=== PATIENT | male | born 1935 | race Caucasian/White ===

== ENCOUNTER → 2016-07-10 | Outpatient (CLI) | payer OTHER, MEDICARE ==
[~2016-07-10] VITALS: Ht 182.9 cm; Wt 88.5 kg
[~2016-07-10] MED LIST: 5-HTP100 MG PO; ATIVAN1 M1 PO; AVODART0.5 MG PO; B12 PO; BACLOFEN20 MG PO; BAYER CHEWABLE81 MG PO; CALCIUM MAGNES1 EAC2 PO; CO Q-10100 MG PO; COPPER2 M1 PO; DHEA 10 MG TAB1 EACH PO; DOXYCYCLINE 10100 MG; GLUCOSAMINE CH1 EA10 PO; JUICE PLUS PO; LEVOTHYROXIN0.125 M1 PO; LEVOTHYROXINE0.05 MG PO; LIORESAL 10 MG10 MG PO; MAGNESIUM PO; MSM1000 MG PO; MULTIVITAMIN PO; NEXIUM40 MG PO; NIACIN400 MG PO; NORTRIPTYLINE H25 M3 PO; OMEGA 3 1,0001 EACH PO; PROBIOTIC1 EAC2 PO; SAM-E400 MG PO; TURMERIC500 MG PO; UROXATRAL10 MG PO; VITAMIN D35000 UNIT PO; ZINC PICOLINAT1 EACH PO; [UNRECOGNIZED DRUG - CODE] PO; [UNRECOGNIZED DRUG - OTHER] PO; [UNRECOGNIZED DRUG - OTHER] PO; [UNRECOGNIZED DRUG - OTHER] PO; [UNRECOGNIZED DRUG - OTHER] PO
--- NOTE | ~2016-07-10 | HPC ---
[facility] [address] [place] [address] PAIN MANAGEMENT CONSULTATION Name: SHEILAMARGOLeilani Foster III Room #: REG MADDY Ming.#: [id number] Admission: 07/10/16 Attend Phys: Catracho Fry DO Discharge: Date of : 33 Report #: [id number] THIS REPORT FOR: //name// CC: Catracho Gillette DATE OF SERVICE: 07/10/2016 REFERRING PHYSICIAN: Jacques Gillette M.D. CHIEF COMPLAINT: Neck pain. HISTORY OF PRESENT ILLNESS: As you know, the patient is a very pleasant 81-year-old male who suffers from cervical facet syndrome causing increasing neck pain and right head pain. He returns today in followup visit stating a pain score of around 3/10. States his pain is constant, steady, aching, dull, exacerbates throughout the day, improves with rest, relaxation, baclofen, and lying down. He does indicate that he suffers from some potential side effects of the baclofen, mainly sleepiness and disorientation. He returns today to discuss treatment options. He is denying a new injury, new trauma that may have led to progression of symptoms. Pain is rated around 3/10. ALLERGIES: No known drug allergies. CURRENT MEDICATIONS: Baclofen 20 mg 3 times a day p.r.n., lactobacillus 1 tab per day, vitamin supplementation 1 per day, niacin 400 mg per day, 5-HTP 100 mg per day, glucosamine chondroitin 1 tab per day, Coenzyme Q 200 mg per day, cholecalciferol 5000 units per day, omega-3 fish oil 1 tab per day, Copper 2 mg once a day, levothyroxine 125 mcg per day, omeprazole 40 mg per day, Avodart 0.5 mg once a day, Uroxatral 10 mg per day, aspirin 81 mg per day. SOCIAL HISTORY: The patient denies tobacco, alcohol, IV or illicit drug use. He is unaccompanied today. IMAGING: No new imaging available. PHYSICAL EXAMINATION: VITAL SIGNS: Blood pressure 112/68, pulse 73, respiratory rate 16, unlabored, the patient is 96% on room air, height 6 feet tall, weight 195 pounds, BMI calculated 26.5. GENERAL: Well-developed, well-nourished, well-hydrated 81-year-old male appearing stated age, placing current pain score 3/10. HEENT: Normocephalic, atraumatic. Pupils equal, round, reactive to light. Extraocular muscles are intact. Sclerae nonicteric, without injection. EXTREMITIES: Show no clubbing, no cyanosis, no edema. [address] [address] PAIN MANAGEMENT CONSULTATION Name: SHEILAELINA W [facility] Room #: REG [facility] Ming.#: [id number] Admission: 07/10/16 Attend Phys: Catracho Fry DO Discharge: Date of : 33 Report #: [id number] MUSCULOSKELETAL: Tenderness to palpation is noted over the paraspinal musculature, cervical spine, right-sided, deep palpation in area causes intensification of pain, lateral flexion, rotation and extension to the right exacerbates neck pain. Spurling's test negative. ASSESSMENT: 1. Cervicalgia. 2. Cervical spondylosis without radicular symptoms. 3. Myofascial pain. 4. Tension headache. 5. Chronic intractable pain. PLAN: 1. The patient returns today in followup visit where we have discussed the treatment options for cervicalgia secondary to cervical spondylosis without radicular symptoms. He is experiencing tension headaches that radiate from the cervical region over the occiput and towards the postauricular area. The patient and I discussed the options for treatment including physical therapy, stretching exercises and traction techniques. We also discussed medication management with neuropathic pain medications, possibly being added to current medication regimen. We also discussed intra-articular facet injections, medial branch nerve blocks and radiofrequency lesioning. After reviewing risks and benefits of all proposed treatment options, the patient chose conservative physical therapy. 2. The patient will begin physical therapy twice a week for 4 weeks. We have sent the patient to see [facility]. The patient will begin the physical therapy as quickly as possible. He will report back to our clinic without efficacy. 3. Recommend the patient continue current medical therapy. He was not provided any changes in medication management at this time. He is to continue his current dosing of medication with the caveat that he should reduce his baclofen from 20 mg 3 times a day to 10 mg. This should reduce the patient's somnolence and dysphoric effects with baclofen and will likely maintain analgesic benefit for muscle spasming. 4. We will see the patient back in followup visit on an as needed basis. We are hopeful the conservative treatment he has chosen will provide good benefit. If not, we will have the patient undergo medial branch nerve block radiofrequency lesioning to address cervicalgia secondary to cervical spondylosis without radiculopathy. <ELECTRONICALLY SIGNED> By: Catracho Fry DO 07/18/16 0937 [id number] Catracho Fry DO /nt
[2016-07-10 13:24] VITALS: BP 112/68
== END | disposition home or self-care (01) ==
LOC: PAIN 06:52
DX: M47.892 Other spondylosis, cervical region (principal); M79.1 Myalgia; G89.29 Other chronic pain; G44.209 Tension-type headache, unspecified, not intractable

== ENCOUNTER → 2016-07-31 | Outpatient (CLI) | payer OTHER, MEDICARE ==
[~2016-07-31] VITALS: Ht 182.9 cm; Wt 88.7 kg
[~2016-07-31] MED LIST changes: +DICLOFENAC SOD50 M1 PO; +ROBAXIN 750 MG750 M1 PO
--- NOTE | ~2016-07-31 | HPC ---
[facility] [address] [place] [address] PAIN MANAGEMENT CONSULTATION Name: SHEILAMARGOLeilani Foster III [facility] [id number] Admission: 07/31/16 Attend Phys: Catracho Fry DO Discharge: Date of : 33 Report #: [id number] THIS REPORT FOR: //name// CC: Catracho Gillette MD DATE OF SERVICE: 07/31/2016 REFERRING PHYSICIAN: Jacques Gillette M.D. CHIEF COMPLAINT: Neck and head pain. HISTORY OF PRESENT ILLNESS: As you know, the patient is an 81-year-old male who suffers from cervical facet syndrome causing increasing neck and right head pain. The patient returns in followup visit reporting pain score 4/10. We have tried conservative medical therapy with physical therapy, stretching exercises. We have even changed sleeping habits and pillows. We have even tried medications. Unfortunately, this has not provided much in the way of improvement in symptoms. He returns today in followup visit to discuss other options. He states pain is constant, steady, aching, dull, progresses throughout the day, improves with rest, baclofen and lying down. He returns to discuss options for treatment. ALLERGIES: No known drug allergies. CURRENT MEDICATIONS: Baclofen 10 mg 3 times a day, lactobacillus 1 tab per day, thiamine 1 tab per day, niacin 1 tab per day, 5-HTP 1 tab per day, glucosamine chondroitin 1 tab per day, zinc picolinate 1 tab per day, Coenzyme Q 100 mg per day, omega-3 fish oil 1 tab per day, levothyroxine 125 mcg per day, omeprazole 40 mg per day, Avodart 0.5 mg once a day, Uroxatral 10 mg once a day, aspirin 81 mg per day. SOCIAL HISTORY: The patient denies tobacco, alcohol, IV or illicit drug use. He is retired. He is accompanied by his who is present in room today. PHYSICAL EXAMINATION: VITAL SIGNS: Blood pressure 139/70, pulse 87, respiratory rate 16, unlabored. The patient is 94% on room air, height 6 feet tall, weight 195 pounds, BMI calculated 26.5. GENERAL: Well developed, well nourished, well hydrated 81-year-old male appearing stated age, placing current pain score 4/10. HEENT: Normocephalic, atraumatic. Pupils equal, round, reactive to light. Extraocular muscles are intact. EXTREMITIES: Showed no clubbing, no cyanosis, no edema. MUSCULOSKELETAL: There is once again noted tenderness to the paraspinal [address] [address] PAIN MANAGEMENT CONSULTATION Name: ELINA SOSA [facility] Room #: REG [facility]#: [id number] Admission: 07/31/16 Attend Phys: Catracho Fry DO Discharge: Date of : 33 Report #: [id number] musculature of the cervical spine, right greater than left. Deep palpation in the upper cervical region causes intensification of pain with the patient reporting pain radiating towards the occiput. Spurling's test negative. Cervical provocation testing is met with increasing pain on the right when compared to the left. Moderate restriction of motion. ASSESSMENT: 1. Cervicalgia. 2. Cervical spondylosis without radiculopathy. 3. Tension headache. 4. Myofascial pain. 5. Chronic intractable pain. PLAN: 1. The patient has returned today in followup visit reporting continued neck and head pain. He states that even with the changes we have made in medication management, changes in pillow structures and continued physical therapy, his symptoms are unabated. He returns today to discuss treatment options today. He denies new injury or trauma to his neck or right portion of his head. The patient and I did discuss that we could provide intraarticular facet injections at C2-C3 and provide also third occipital nerve blocks with these procedures. These will provide some temporary improvement in symptoms, but will likely lead to recurrence of symptoms as the medications dissipate. I do feel this is an option for treatment, but certainly would not provide prolonged improvement. We did discuss with the patient radiofrequency lesioning process of the cervical spine. This has multiple complications, specifically with sensory changes in the upper neck and lower portion of the head that can be more problematic than the original problem. Certainly if he wishes to move forward with this type of procedure, we could have him see my partner who continues to provide this type of treatment. I have subsequently discontinued due to its lack of efficacy. We also discussed with the patient the possibility of utilizing Botox injections, which have been shown to be extremely effective in alleviating the tension headache portion of this patient's symptoms and alleviating some of his neck pain. He opted for this type of treatment. 2. The patient will be referred to see . ____ in regards to Botox injections. We have provided a referral to . ____ office specifically for Botox injections to trial to determine if he can receive long-term benefit with this type of treatment. The patient will look into his options with ____. 3. We will make some changes in medication therapy today. We will be changing the patient off of baclofen rotating to Robaxin 750 mg dose 1 tab p.o. t.i.d. I have given the patient #90. He may take one half tab to one tab as needed for muscle spasming. This should have less sedation than his baclofen. He will initiate the Robaxin therapy and contact our clinic with any comments or concerns. 4. The patient will be started on diclofenac sodium 50 mg dose 1 tab p.o. [address] [address] PAIN MANAGEMENT CONSULTATION Name: ELINA SOSA BRODIE Room #: [facility] Rene#: [id number] Admission: 07/31/16 Attend Phys: Catracho Fry DO Discharge: Date of : 33 Report #: [id number] t.i.d. I have given the patient #90 tablets. He is to take these with meals. This will take the place of his Meloxicam therapy. We are just trying to determine if a new nonsteroidal anti-inflammatory will provide better efficacy. He is to watch for his dyspepsia, worsening blood pressure, lower extremity edema with use of this medication. 5. The patient will return to our clinic on an as needed basis. He will follow up with ____ from the referral standpoint to discuss Botox injections. By: 0737 [id number] Catracho Fry DO /nt
[2016-07-31 12:59] VITALS: BP 139/70
== END ==
LOC: PAIN 09:43
DX: M47.812 Spondylosis without myelopathy or radiculopathy, cervical region (principal); G89.29 Other chronic pain

== ENCOUNTER → 2017-02-12 | Outpatient (CLI) | payer OTHER, MEDICARE ==
[~2017-02-12] VITALS: Ht 180.3 cm; Wt 93.0 kg
[~2017-02-12] MED LIST changes: +XANAX 0.5 MG0.5 MG PO
--- NOTE | ~2017-02-12 | HPC ---
[facility] [address] [place] [address] PAIN MANAGEMENT CONSULTATION Name: SEHILAELINALeilani Foster III Room #: REG [facility] Rene#: [id number] Admission: 02/12/17 Attend Phys: Catracho Fry DO Discharge: Date of : 33 Report #: [id number] THIS REPORT FOR: //name// CC: Catracho Gillette MD DATE OF SERVICE: 02/12/2017 REFERRING PHYSICIAN: Jacques Gillette MD CHIEF COMPLAINT: Neck and head pain. HISTORY OF PRESENT ILLNESS: As you know, the patient is an 81-year-old male who returns today in followup visit with ongoing neck and head pain. He indicates pain begins in the cervical area, radiates over the top of the head in a greater occipital distribution. He was seen in our clinic and diagnosed with occipital neuralgia, possibly due to third occipital irritation and tension headache. The patient was trialed on conservative therapy, he did not see significant improvement and ultimately sought further evaluation, he had been seen by a neurology, also spent some time at the [facility] who confirmed the diagnosis. He has undergone injections to affect third occipital neuralgia, the facet joints of the upper cervical region and greater occipital nerve block, the only effective treatment to date has been the greater occipital nerve block, which lasted for about 7 days. This is fairly typical for occipital nerve blocks from a timing standpoint, this was done at the [facility] under ultrasound guidance and despite this treatment, his symptoms did return, he is now placing pain score at 5/10. He was advised by [facility] to return to our clinic as we had diagnosed this appropriately years ago and they recommend that the patient followup with us for interventional treatments and medication management. The patient is stating his pain is continuous, steady, aching, dull and headache in sensation. He returns to discuss potential options for treatment. ALLERGIES: No known drug allergies. CURRENT MEDICATIONS: Alprazolam, methocarbamol, lactobacillus, thiamine, vitamin B12, niacin, HTP-5, glucosamine chondroitin, coenzyme Q, cholecalciferol, DHEA, omega-3 fish oil, copper gluconate, multivitamin, aspirin, dutasteride, omeprazole, and levothyroxine. SOCIAL HISTORY: The patient denies tobacco, alcohol, IV or illicit drug use. He is retired, retired years ago, accompanied by his who is present in room today. IMAGING: [place] [address] PAIN MANAGEMENT CONSULTATION Name: ELINA SOSA III Room #: REG [facility] Rene#: [id number] Admission: 02/12/17 Attend Phys: Catracho Fry DO Discharge: Date of : 33 Report #: [id number] PHYSICAL EXAMINATION: VITAL SIGNS: Blood pressure 142/84, pulse 99, respiratory rate 18 and unlabored, the patient is 97% on room air, height 5 feet 11 inches tall, weight 205 pounds, and BMI calculated 28.6. GENERAL: Well-developed, well-nourished, well-hydrated 81-year-old male, appearing stated age, pain is rated around 5/10. HEENT: Normocephalic, atraumatic. Pupils are equal, round, and reactive to light. EXTREMITIES: Show no clubbing, no cyanosis, and no edema. MUSCULOSKELETAL: The patient does have some palpatory tenderness over the paraspinal musculature of the upper cervical region. Deep palpation of the area causes intensification of pain. There is some palpatory tenderness over the occipital ridge directly overlying the greater occipital nerve. ASSESSMENT: 1. Greater occipital neuralgia. 2. Tension headache. 3. Chronic intractable pain. PLAN: 1. The patient returns today in followup visit having followed up with multiple physicians since our last visit, most recent visits were with the [facility] where they confirmed the diagnosis of occipital neuralgia, whether this is due to third occipital neuralgia or greater occipital neuralgia remains to be determined, though given the effects of the greater occipital nerve block, I would assume this is more of a greater occipital issue than a third occipital issue. We have discussed with the patient that the options for treatment are fairly limited with occipital neuralgia, we are limited to medical management with neuropathic pain medications whether this be oral or topical can be somewhat effective, other options would be continued series of great occipital nerve blocks, which could provide long-term efficacy. We also discussed surgical options. After reviewing risks and benefits of all proposed treatment options, the patient chose to begin with the conservative medical management. 2. The patient will be started on Lyrica, we will be providing about 50 mg dose 1 tab p.o. at bedtime, we have chosen Lyrica as he has had gabapentin in the past and had side effects of somnolence, decreased mental acuity, disorientation, and confusion and was unable to escalate his dose to an appropriate level to resolve symptoms. We will start at 50 mg dose 1 tab p.o. at bedtime for 5 nights, then we will increase to 2 tabs p.o. at bedtime for 5 nights, then 1 tab p.o. q.a.m., 2 tabs p.o. at bedtime if necessary. The patient was given samples of the medication. He will initiate the therapy at this time. He will contact our clinic with any questions or concerns. He is only to increase the medications if he is not noticing efficacy at the [facility] [address] [place] [address] PAIN MANAGEMENT CONSULTATION Name: ELINA SOSA III Room #: THAO López#: [id number] Admission: 02/12/17 Attend Phys: Catracho Fry DO Discharge: Date of : 33 Report #: [id number] dosing. We hope that he will do well with this medication. We will see him back in followup visit in about 2 weeks. By: 1122 1346 Catracho Fry DO /nt
[2017-02-12 08:43] VITALS: BP 142/84
== END ==
LOC: PAIN 06:43
DX: G89.29 Other chronic pain (principal); M54.2 Cervicalgia; R51 Headache; M79.2 Neuralgia and neuritis, unspecified

== ENCOUNTER → 2017-03-05 | Outpatient (CLI) | payer OTHER, MEDICARE ==
[~2017-03-05] VITALS: Ht 180.3 cm; Wt 94.1 kg
[~2017-03-05] MED LIST changes: +LYRICA 50 MG50 MG PO; +NEURONTIN 300300 M1 PO
--- NOTE | ~2017-03-05 | HPC ---
[facility] [address] [place] [address] PAIN MANAGEMENT CONSULTATION Name: SHEILAELINALeilani Foster III Room #: REG [facility] [id number] Admission: 03/05/17 Attend Phys: Catracho Fry DO Discharge: Date of : 33 Report #: [id number] THIS REPORT FOR: //name// CC: Catracho Gillette MD DATE OF SERVICE: 03/05/2017 REFERRING PHYSICIAN: Jacques Gillette MD CHIEF COMPLAINT: Neck pain and head pain. HISTORY OF PRESENT ILLNESS: As you know, the patient is an 81-year-old male who has a longstanding history of neck pain and head pain problems. He has been diagnosed with third occipital neuralgia. We started the patient on medication management in the form of Lyrica in sample form, he is now taking 50 mg in the morning and 100 mg at night with greater than 50% improvement in overall pain. He returns today in followup visit for possible adjustments. He indicates no side effects to the medication at this time, feels that medications have been quite beneficial. He returns to discuss options for treatment as he is planning his winter trip to [place] where he spends the entire winter, returning in Spring. ALLERGIES: No known drug allergies. CURRENT MEDICATIONS: Alprazolam, methocarbamol, lactobacillus, thiamin, vitamin B12, niacin, HTP-5, glucosamine chondroitin, coenzyme Q, cholecalciferol, DHEA, omega-3 fish oil, Copper gluconate, multivitamin, aspirin, dutasteride, omeprazole, levothyroxine, and Lyrica. SOCIAL HISTORY: The patient denies tobacco, alcohol, IV or illicit drug use. He retired years ago, unaccompanied today. IMAGING: No new imaging available. PHYSICAL EXAMINATION: VITAL SIGNS: Blood pressure 119/59, pulse 85, respiratory rate 14 and unlabored, the patient is 97% on room air, height 5 feet 11 inches tall, weight 207.4 pounds, and BMI calculated 28.9. GENERAL: Well-developed, well-nourished, well-hydrated 81-year-old male, appearing stated age. Pain is rated today at a level of 3/10. HEENT: Normocephalic, atraumatic. Pupils are equal, round, and reactive to light. Extraocular muscles are intact. Sclerae are nonicteric without injection. NEUROLOGIC: Cranial nerves 2-12 are grossly intact[place] [address] PAIN MANAGEMENT CONSULTATION Name: ELINA SOSA III Room #: REG [facility]#: [id number] Admission: 03/05/17 Attend Phys: Catracho Fry DO Discharge: Date of : 33 Report #: [id number] EXTREMITIES: Show no clubbing, no cyanosis, and no edema. MUSCULOSKELETAL: There is some palpatory tenderness over the paraspinal musculature of the upper cervical region. Deep palpation of the area causes intensification of pain, this is noted only on the right side. Cervical provocation testing is met with only mild changes in pain. ASSESSMENT: 1. Third occipital neuralgia. 2. Tension headache. 3. Intractable pain. PLAN: 1. The patient returns today in followup visit where we have discussed the efficacy of the trial of Lyrica. He notes 50 mg in the morning and 100 mg at night is providing upwards of 50, almost 60% improvement in overall pain. His headaches have now gone from continuous daily to more of an intermittent presentation, he is noting no side effects. We discussed with the patient other options for treatment. We also discussed the possibility that we would need to trial a different medication before we could continue a Lyrica therapy. The patient is amenable make any changes as necessary. 2. We will start the patient on gabapentin 300 mg dose 1 tab p.o. q. a.m. and 2 tabs p.o. at bedtime, total of 900 mg per day. He will start this medication over the next week, he will contact our clinic next Saturday in regards to efficacy, we may need to ultimately increase this dose based on his improvement in symptoms, we will adjust this as necessary. If the patient is doing well with medication at the 300 mg morning dose and 600 mg evening dose, we will continue him for the foreseeable future. If alterations in his medication need to be made, we will do that at our telephone conversation Saturday of next week. 3. We will await the contact from the patient in regards to the gabapentin therapy. We are hopeful that the patient will see improvement further with symptoms and lack of side effects. We will assess this at our telephone conversation next week. If adjustments need to be made, we will make it at that time. We are pleased to see the patient has done well with the Lyrica sample therapy, we are hopeful that he will see similar improvement with the gabapentin therapy. <ELECTRONICALLY SIGNED> By: Catracho Fry DO 03/19/17 0906 [id number] [id number] Catracho Fry DO /nt
[2017-03-05 09:07] VITALS: BP 119/59
== END ==
LOC: PAIN 06:48
DX: G89.29 Other chronic pain (principal); M54.81 Occipital neuralgia; R51 Headache; M54.2 Cervicalgia

== ENCOUNTER → 2019-12-02 | Outpatient (CLI) | payer OTHER, MEDICARE ==
[~2019-12-02] VITALS: Ht 180.3 cm; Wt 88.4 kg
--- NOTE | ~2019-12-02 | HPC ---
[facility] [address] [place] [address] PAIN MANAGEMENT CONSULTATION Name: ELINA SOSA BRODIE Room #: REG MADDY Rene#: [id number] Admission: 12/02/19 Attend Phys: Catracho Fry DO Discharge: Date of : 33 Report #: [id number] CC: Catracho Velazquez DATE OF SERVICE: 12/02/2019 CHIEF COMPLAINT: Neck pain and right head pain. HISTORY OF PRESENT ILLNESS: As you know, the patient is a pleasant 84-year-old male, who continues to experience right occipital neuralgia and cervicogenic headache. The patient sought evaluation from multiple physicians including being seen at the [facility] for this ongoing issue that is related to his cervical facet arthropathy. He received a right occipital nerve block at the [facility], which gave some improvement in symptoms. He has sought evaluation and treatment without significant improvement except for the injection done at the [facility]. He follows up with us today to discuss the possibility of undergoing a right occipital nerve block, but also other options for treatment. The patient does come to us today with paperwork from prior evaluations, but no new imaging. ALLERGIES: No known drug allergies. CURRENT MEDICATIONS: Gabapentin, Lyrica, alprazolam, lactobacillus, vitamin B12, thiamine, niacin, 5-HTP, glucosamine chondroitin, Coenzyme Q10, cholecalciferol, omega-3 fish oil, copper gluconate, SAMe, levothyroxine, omeprazole, finasteride, Uroxatral, and aspirin. SOCIAL HISTORY: The patient denies tobacco, alcohol, IV or illicit drug use. He is retired, retired years ago, accompanied by , present in room today. IMAGING: No new imaging available. PQRS: The patient has known arthritic changes of the cervical spine, bilateral shoulders, bilateral hands, bilateral hips, knees and lumbar spine. No rheumatoid arthritis. He is placing current pain score 6/10. He is not a fall risk nor has he had a fall in last 3 months. He is not on blood thinners, nor is he treated for hypertension. He is not on chronic opioids, has a low opiate addiction potential. Pain impact today . Mild interference of daily activities secondary to pain. PHYSICAL EXAMINATION: VITAL SIGNS: Blood pressure 112/63, pulse 75, respiratory rate 16 and unlabored. The patient is 96% on room air. Height 5 feet 11 inches tall, weight 194.8 pounds and BMI calculated 27.2. GENERAL: A well-developed, well-nourished, well-hydrated 84-year-old male. He appears stated age. He is in no acute distress, awake, alert and oriented x3. Current pain score is rated 6-7/10. HEENT: Normocephalic, atraumatic. Pupils equal, round and reactive. Speech is fluent. EXTREMITIES: Show no clubbing, no cyanosis. No appreciable edema. MUSCULOSKELETAL: There is palpatory tenderness noted over the paraspinal musculature of the cervical spine. Deep palpation of the area causes intensification of symptoms. Cervical provocation testing is met with moderate restriction of motion with right, rotation and right lateral flexion. Spurling test is negative. ASSESSMENT: 1. Cervicogenic headache. 2. Third occipital neuralgia. 3. Right occipital neuralgia. 4. Cervical facet arthropathy. 5. Cervical spondylosis without radiculopathy. PLAN: 1. Based on today's physical exam and history the patient has provided, the description the patient uses in regards to pain as well as location of symptoms, it would appear the patient is suffering from cervicogenic headache causing third occipital neuralgia, translating then into occipital neuralgia affecting mainly the greater occipital nerve. The patient and I had a very long discussion about the pathology of his symptoms. After this discussion, we then discussed treatment options. Following was discussed with the patient today as a treatment plan. 2. The patient discussed the possibility of undergoing percutaneous electrical nerve stimulation. This tends to work very well for myofascial symptoms, for which the patient is experiencing. It is the myofascial tension of the splenius capitis muscle leading to compression of the third occipital nerve that then gives rise to both the lesser and greater occipital nerves, which is the source of the patient's symptoms. By utilizing percutaneous electrical nerve stimulation you can reduce the spasming of the cervical paraspinal musculature, which theoretically would improve nerve root compression. We discussed also with the patient acupuncture therapy as another treatment course. This is a slightly different variation on the percutaneous electrical nerve stimulation that could provide the patient with excellent benefit. We also discussed with the patient Botox injections to the cervical region to reduce the muscle spasming of the paraspinal muscles of the cervical spine, leading to a cervicogenic headache. We also discussed with the patient surgical procedure to fuse the neck, reducing the movement on the right side and thus improving his neck symptoms and myofascial symptoms. After reviewing the risks and benefits of all proposed treatment options, the patient chose to move forward with percutaneous electrical nerve stimulation and possible Botox injections. 3. The patient was given the names of the facilities that provide percutaneous electrical nerve stimulation. We also provided the patient with information in regards to acupuncture therapy as a more conservative treatment approach. If these are unsuccessful alleviating symptoms, I would recommend that the Botox injections as next in the series of conservative treatment course. 4. The patient was given the name of ___ as a physician who could perform the Botox injections into the cervical paraspinal musculature. He was given the name and contact number of this physician if he wishes to move forward with Botox injections. 5. From an interventional standpoint, we do not have a specific treatment option that will assist the patient other than the right greater occipital nerve block that was performed successfully at [facility], which gave the patient some improvement in symptoms. He wishes to undergo this today. The symptoms he is experiencing will not respond well to cervical facet injections as his symptoms are related to the myofascial symptoms overlying and not the facet joints themselves. The patient is agreeable to undergo right greater occipital nerve block. 6. We will see the patient back in followup visit on an as needed basis for possible next in the series of right greater occipital nerve blocks. We are hopeful the patient was good benefit with the procedure performed today. We will see him back in followup visit on an as needed basis for possible next in the series if successful in alleviating symptoms. PROCEDURE NOTE: DESCRIPTION OF PROCEDURE: Right occipital nerve block. After obtaining written consent, the patient was placed in seated position flexing his neck forward. The external occipital protuberance and the right superior nuchal ridge and occipital artery were identified by palpation. Next, the patient's hair and scalp were cleansed thoroughly with aseptic technique using chlorhexidine. A 27-gauge 1-1/4 inch needle was inserted medially to the occipital artery or approximately 3 cm lateral to the external occipital protuberance. Needle was then directed anteriorly and slightly superiorly and introduced approximately 1 cm. Paresthesias were not noticed along the ipsilateral temporal occipital distribution during needle insertion. After negative aspiration for heme, 4 mL of a solution containing 1 mL 40 mg per mL, 40 mg total triamcinolone and 3 mL bupivacaine 0.5% was injected in a fanned out distribution. The patient experienced no complications during the procedure. He tolerated the procedure well and was carefully escorted to recovery room in stable condition. No apparent complications. VAS before procedure rated at 7/10, VAS 10 minutes after procedure 3/10. After meeting our discharge criteria, the patient discharged home. By: 1152 [id number] Catracho Fry DO /nt
[2019-12-02 12:55] VITALS: BP 112/63
--- NOTE | 2019-12-02 13:21 | NUR ---
Pain Clinic Assessment: 1. History of Osteoarthritis: Right Upper Extremity History of Rheumatoid Arthritis: Not Applicable 2. Height: 5 ft. 11 in. 180.3 cm. Weight: 194.8 lb. oz. 88.361 kg. Patient's BMI: 27.2 3. Vital Signs: BP: 112/63 Pulse: 95 Resp: 16 Temp: 02 Sat: 96 ECG Mon: 4. Pain Intensity: 6-7 5. Fall Risk: Dizziness: N Needs help standing or walking: N Fallen in the last 3 months: N Fall risk comments: 6. Patient on Blood Thinner: None 7. History of Hypertension: N 8. Opioid Therapy greater than 6 weeks: N Opiate Contract Signed: 9. Risk Assessment Tool Provided: 10. Functional Assessment Tool: 11. Recreational Drug Use: Never Drug Type: Tobacco Use: Never Smoker Tobacco Type: Amount or Packs/day: How Many Years: Alcohol Use: No Frequency: Quant:
== END | disposition home or self-care (01) ==
LOC: PAIN 06:40
PROVIDERS: ATTEND Anesthesiology Pain Medicine
DX: M54.81 Occipital neuralgia (principal); G44.89 Other headache syndrome; M47.812 Spondylosis without myelopathy or radiculopathy, cervical region; Z98.890 Other specified postprocedural states; Z79.899 Other long term (current) drug therapy; Z79.82 Long term (current) use of aspirin

== ENCOUNTER → 2020-08-02 | Outpatient (CLI) | payer OTHER, MEDICARE ==
[~2020-08-02] VITALS: Ht 180.3 cm; Wt 91.4 kg
[~2020-08-02] MED LIST changes: +BACLOFEN 10MG T10 MG PO; +CYMBALTA30 MG PO; +LEVO-T75 MCG PO
[2020-08-02 13:31] VITALS: BP 118/64
--- NOTE | 2020-08-02 13:54 | NUR ---
Pain Clinic Assessment: 1. History of Osteoarthritis: Right Upper Extremity History of Rheumatoid Arthritis: Not Applicable 2. Height: 5 ft. 11 in. 180.3 cm. Weight: 201.4 lb. oz. 91.355 kg. Patient's BMI: 28.1 3. Vital Signs: BP: 118/64 Pulse: 78 Resp: 16 Temp: 02 Sat: 98 ECG Mon: 4. Pain Intensity: 6-7 5. Fall Risk: Dizziness: N Needs help standing or walking: Y Fallen in the last 3 months: N Fall risk comments: 6. Patient on Blood Thinner: None 7. History of Hypertension: N 8. Opioid Therapy greater than 6 weeks: N Opiate Contract Signed: 9. Risk Assessment Tool Provided: 10. Functional Assessment Tool: 11. Recreational Drug Use: Never Drug Type: Tobacco Use: Never Smoker Tobacco Type: Amount or Packs/day: How Many Years: Alcohol Use: No Frequency: Quant:
--- NOTE | 2020-08-09 09:33 | HPC ---
[facility] [place] [address] PAIN MANAGEMENT CONSULTATION Name: ELINA SOSA BRODIE Room #: REG MADDY López#: [id number] Admission: 08/02/20 Attend Phys: Catracho Fry DO Discharge: Date of : 33 Report #: [id number] THIS REPORT FOR: cc: Karolina Velazquez Victoria Brooke DO Johnson, James E. DO ~ DOC #: [id number] cc: Jacques Fry DO DATE OF SERVICE: 08/02/2020 CHIEF COMPLAINT: Right neck pain. HISTORY OF PRESENT ILLNESS: As you know, the patient is a very pleasant 85-year-old male who has had a longstanding history of on and off right neck pain and cervicogenic headache. The patient has been treated for symptoms with various treatment options including medication management, interventional treatment, all of which have provided transient improvement in symptoms. The patient has now ultimately undergone peripheral nerve stimulator implantation by his neurosurgeon, Dr. Bonilla and has begun to note improvement in symptoms, but continues to experience neck pain and right shoulder pain for which he describes as trapezius tenderness that leads to balance issues. He has not followed up with Neurosurgery in regards to his peripheral nerve stimulator. He indicates that he has not been advised on how to use the peripheral nerve stimulator. He continues to utilize paresthesia based treatment for his occipital neuralgia, but is noticing no improvement in his balance. He states that when he undergoes massage therapy to address his trapezius, his balance is significantly improved, but unfortunately this is only transiently noted. Once his spasming of the trapezius reoccurs, his balance is once again off. He returns to our clinic to discuss options for treatment. ALLERGIES: No known drug allergies. CURRENT MEDICATIONS: See chart. SOCIAL HISTORY: The patient denies tobacco, alcohol or IV or illicit drug use. He is retired, retired years ago, accompanied by his who is present in room today. IMAGING: No new imaging available. PQRS: The patient has known arthritic changes of the cervical spine, bilateral shoulders, bilateral hands, bilateral hips and knees, and lumbar spine. No rheumatoid arthritis. He is placing pain today at 6-09/03. He is a fall risk, but has not had a fall in last 3 months. He does not use anything other than a cane for ambulation. He is not on blood thinners nor is he treated for [address] [address] PAIN MANAGEMENT CONSULTATION Name: ELINA SOSA III Room #: REG [facility]#: [id number] Admission: 08/02/20 Attend Phys: Catracho Fry DO Discharge: Date of : 33 Report #: [id number] hypertension. He is not on chronic opioids, has a low opioid addiction potential. Pain impact of , mild interference of daily activities secondary to pain. PHYSICAL EXAMINATION: VITAL SIGNS: Blood pressure 118/64, pulse 78, respiratory rate 16 and unlabored. The patient 98% on room air. Height 5 feet 11 inches tall, weight 201.4 pounds, BMI calculated 28.1. GENERAL: Well-developed, well-nourished, well-hydrated 85-year-old male appearing stated age, pain is rated today 6-7/10. HEENT: Normocephalic, atraumatic. Pupils equal, round and responsive. He is wearing a mask in compliance with COVID-19 regulations. EXTREMITIES: Show no clubbing, no cyanosis. No appreciable edema. MUSCULOSKELETAL: Palpatory tenderness is noted over the paraspinal musculature of the right cervical spine, negative left. There is tightness through the trapezius muscle on the right when compared to left, rhomboids appear equivocal from a spasming standpoint when comparing left to right. Upper extremity strength appears symmetrical. Deep palpation over the trapezius causes intensification of pain. ASSESSMENT: 1. Cervicogenic headache. 2. Right occipital neuralgia. 3. Cervical facet arthropathy. 4. Cervical spondylosis without radiculopathy. PLAN: 1. The patient returns today in followup visit having undergone implantation of a peripheral nerve stimulator by Dr. Bonilla. The patient is experiencing paresthesia based treatment of his symptoms and has attempted to increase the power of his device, but states that the paresthesias themselves become more problematic than the original pain generator. The patient has not had any significant education in regards to the use of this peripheral nerve stimulator. He states that he has had minimal contact with Dr. Bonilla since implant and had not been given much in the way of direction. We would recommend that the patient contact his [employer] device brand representative and discussed with him the possibility of utilizing non-paresthesia based treatment to address his symptoms. This would allow the patient to increase the amplitude and strength of the signal potentially improving overall pain, but reducing the potential development of paresthesias that are more problematic than his original pain generator. He will make the adjustments in his device today that we suggested, but we will be contacting the [employer] device brand representative for adjustments in the device itself. 2. We recommend that the patient follow up with Neurosurgery to discuss his ongoing muscle spasming. It would appear his symptoms are related to the facet arthropathy noted in the cervical region that is causing an overlying spasming [address] [address] PAIN MANAGEMENT CONSULTATION Name: ELINA SOSA III Room #: REG [facility]#: [id number] Admission: 08/02/20 Attend Phys: Catracho Fry DO Discharge: Date of : 33 Report #: [id number] of the muscular tissue trying to protect the cervical spine. I do not proceed with cervical radiculopathy as the source of symptoms, though it could be an unusual myotomal distribution. We discussed this with the patient today. He will be following up with Neurosurgery in regards to improvement in neuro stimulation with the peripheral nerve stimulator as above. 3. We discussed with the patient trialing Botox injections into the trapezius. He states that he has attempted this in the past, but was not noticing any significant improvement. Certainly, this could be done again. We had given him the name of the physician we recommended, but he followed up with a different system in the [facility] program and did not feel that he received much in the way of benefit. This does not preclude attempting Botox injections, but we would recommend. He will consider this option if he wishes to move forward. He will contact our clinic. 4. We will start the patient on baclofen 10 mg 3 times a day dose. I have given #90 tablets. He will trial the 3 a day dose. If this is not sufficient in controlling symptoms, he could double the dose to 20 mg t.i.d., but he will need to watch for side effects of sleepiness, disorientation, confusion. I have given the patient, #90 tablets of the 10 mg dose to begin trialing the medication to see if the medication will be beneficial. 5. If the patient is noticing no improvement with adjustments made in the peripheral nerve cord stimulator or the use of the baclofen, he could start Cymbalta 30 mg p.o. at bedtime for 7 nights, increase to 60 mg p.o. at bedtime. I advised the patient to watch for side effects with this medication including sleepiness, disorientation, confusion, mental slowing and possibility of memory loss. If he notes any side effects, I would recommend that he discontinue the medication entirely, but if he is noticing improvement he can continue the therapy. Prescription was sent via [employer] local pharmacy. 6. We will see the patient back in followup visit on an as needed basis. I am hopeful that the information provided in this dictation will allow for further adjustments in the peripheral nerve stimulator and possibly even trial paresthesia free treatment. He will be following up with Neurosurgery in regards to ongoing pain. If he does start the medication, he will contact our clinic. DO KILLIAN Bernard/ISMAEL/ARNULFO <ELECTRONICALLY SIGNED> By: Catracho Fry DO 08/09/20 [id number] Catracho Fry DO /nt
== END ==
LOC: PAIN 08:28
PROVIDERS: ATTEND Anesthesiology Pain Medicine
DX: M47.22 Other spondylosis with radiculopathy, cervical region (principal); R51.9 Headache, unspecified; M54.81 Occipital neuralgia; Z79.891 Long term (current) use of opiate analgesic; Z79.899 Other long term (current) drug therapy

== ENCOUNTER → 2020-10-18 | Outpatient (CLI) | payer OTHER, MEDICARE ==
[~2020-10-18] VITALS: Ht 180.3 cm; Wt 91.8 kg
[~2020-10-18] MED LIST changes: +CBD OIL; +PROLIA60 MG/1 ML SUBQ
[2020-10-18 09:17] VITALS: BP 120/71
--- NOTE | 2020-10-18 09:38 | NUR ---
Pain Clinic Assessment: 1. History of Osteoarthritis: fingers spine History of Rheumatoid Arthritis: Not Applicable 2. Height: 5 ft. 11 in. 180.3 cm. Weight: 202.4 lb. oz. 91.808 kg. Patient's BMI: 28.2 3. Vital Signs: BP: 120/71 Pulse: 86 Resp: 16 Temp: 02 Sat: 96 ECG Mon: 4. Pain Intensity: 4 5. Fall Risk: Dizziness: N Needs help standing or walking: N Fallen in the last 3 months: N Fall risk comments: 6. Patient on Blood Thinner: None 7. History of Hypertension: N 8. Opioid Therapy greater than 6 weeks: N Opiate Contract Signed: 9. Risk Assessment Tool Provided: 6-mod 10. Functional Assessment Tool: 39 11. Recreational Drug Use: Never Drug Type: Tobacco Use: Former Smoker Tobacco Type: Amount or Packs/day: How Many Years: Alcohol Use: No Frequency: Quant:
--- NOTE | 2020-10-19 10:47 | HPC ---
[address] [place] [address] PAIN MANAGEMENT CONSULTATION Name: ELINA SOSA III Room #: REG MADDY López#: [id number] Admission: 10/18/20 Attend Phys: Catracho Fry DO Discharge: Date of : 31 Report #: [id number] THIS REPORT FOR: cc: Karolina Velazquez, Karolina Key,Catracho Gu DO ~ cc: Referring Physician DATE OF SERVICE: 10/18/2020 CHIEF COMPLAINT: Tension headache. HISTORY OF PRESENT ILLNESS: As you know, the patient is a very pleasant 85-year-old male with longstanding history of right neck pain and cervicogenic headache, diagnosed as a tension headache. The patient has sought treatment by multiple physicians in regards to this single unilateral problem. He has ultimately undergone peripheral nerve stimulator implantation with his neurosurgeon, Dr. Bonilla and even with this implantation, he is not receiving much in the way of benefit. He has only made 2 adjustments in the stimulator programming since it was implanted. We have always recommended to the patient to adjust that device first as the time in the effort to place this was significant and people typically see good response with therapy. The patient has sought recent evaluation through Neurology who has advised him that he is suffering from a chronic CSF leak and that his headaches are positional in nature. The patient completely refutes that information as his symptoms are not positional in nature. He does not have postdural puncture or CSF leak headache. His symptoms began on the right side of the neck and radiates over the top of the head in classic distribution consistent with tension headache. His symptoms are exacerbated with increasing anxiety and stress as well as certain activities, improves with sitting quietly, which would be inconsistent with a CSF leak headache. Pain is also improved with muscle relaxants, again inconsistent with cerebrospinal fluid leaks. He returns today to discuss treatment options. ALLERGIES: No known drug allergies. CURRENT MEDICATIONS: Tizanidine 4 mg t.i.d., testosterone 100 mg intramuscularly per week. SOCIAL HISTORY: The patient denies tobacco, alcohol or IV or illicit drug use. He is retired, retired years ago, accompanied by his , present in room today. IMAGING: No new imaging available. PQRS: The patient has known arthritic changes of the cervical spine, bilateral shoulders, bilateral hands, bilateral hips, knees and lumbar spine. [address] [address] PAIN MANAGEMENT CONSULTATION Name: ELINA SOSA [facility] Room #: REG MADDY López#: [id number] Admission: 10/18/20 Attend Phys: Catracho Fry DO Discharge: Date of : 33 Report #: [id number] rheumatoid arthritis. He is placing pain intensity today 08/04. He is not a fall risk, has not had a fall in last 3 months, not on blood thinners nor is he treated for hypertension. He is not on chronic opioids, has a low opioid addiction potential. Pain impact is 47/70, severe interference of daily activities secondary to pain. PHYSICAL EXAMINATION: VITAL SIGNS: Blood pressure 162/89, pulse is 95, respiratory rate 16 and unlabored. The patient 100% on room air. Height 5 feet 10 inches tall, weight 238 pounds, BMI calculated 34.1. GENERAL: Well-developed, well-nourished, well-hydrated 85-year-old male appearing stated age, no acute distress. Awake, alert and oriented x 3. Current pain score 6/10. HEENT: Normocephalic, atraumatic. Pupils are round and responsive. Speech is fluent. He is wearing a mask in compliance with COVID-19 regulations. EXTREMITIES: Show no clubbing, no cyanosis and no edema. MUSCULOSKELETAL: The patient has tenderness to palpation over the paraspinal musculature of the right cervical spine and trapezius area. No findings on the left. There are multiple tender points, no specific trigger points. Upper extremity strength is symmetrical, 5/5. Cervical provocation testing is met with slight increase in pain on the right with rotation, lateral flexion to the right, negative to the left. Deep palpation over the upper cervical area causes intensification of pain with radiation over the top of the occiput consistent with tension headache and cervicogenic headaches. ASSESSMENT: 1. Cervicogenic headache. 2. Tension headache. 3. Right occipital neuralgia. 4. Cervical spondylosis without radicular symptoms. 5. 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 PLAN: 1. Based on today's physical exam and history the patient provided, the description the patient uses in regards to pain as well as the discrete location of symptoms, it would appear the patient is suffering from tension headache, also known as cervicogenic headache. The patient has a peripheral nerve stimulator in place, placed by his neurosurgeon to address this issue. He has only made 2 adjustments in the programming since it has been implanted. We typically find that it takes multiple adjustments to reach the appropriate and efficacious levels. He may actually over stimulate the area, which has been known to cause symptoms similar to his with the peripheral nerve stimulator. I have advised the patient at this point contact his implanting surgeon and discuss the possibility of meeting with the device representatives and make adjustments in his device in hopes of better improvement in analgesia. 2. The patient is complaining of some daytime fogginess, some somnolence. He [address] [place] [address] PAIN MANAGEMENT CONSULTATION Name: ELINA SOSA BRODIE Room #: REG Christen López#: [id number] Admission: 10/18/20 Attend Phys: Catracho Fry DO Discharge: Date of : 33 Report #: [id number] takes multiple medications at night including L-tryptophan, melatonin, and benzodiazepine prior to bed. This may be contributing to his daytime sleepiness. We recommend discontinuing initially the L-tryptophan, remaining on the alprazolam and the melatonin. If in a week his symptoms do not improve, he can restart the L-tryptophan if he feels it is necessary and discontinue the melatonin. If after a week of off melatonin he notes no improvement in symptoms, the likely source of the symptoms is the benzodiazepine. He will need to discuss with his PCP on how to wean off that medication. I am hopeful that the patient will find that either melatonin or L-tryptophan is the source of his daytime somnolence and he can come off the medication and those symptoms will improve. 3. We have provided the patient a change in medication. I am concerned that the tizanidine that he has been taking in the past may be contributing to some of his daytime sleepiness. We will rotate to baclofen 10 mg dose. He could take 1-2 tabs p.r.n. as needed for muscle spasming. If this is an effective agent and he is not experiencing increasing somnolence, we could use this as a baseline muscle spasming therapy. The patient was provided prescription of #90 tablets, no refills as a trial. If this is effective, he will contact our clinic and we will provide refills. 4. The patient will be following up with Neurology in regards to their discussion of a cerebrospinal fluid leak. Given the findings on physical exam, I do not feel that this is the source of his symptoms, but we do recommend the patient follow up with his neurologist to discuss further. <ELECTRONICALLY SIGNED> By: Catracho Fry DO 10/19/20 [id number] [id number] Catracho Fry DO /nt
== END ==
LOC: PAIN 06:38
PROVIDERS: ATTEND Anesthesiology Pain Medicine
DX: G44.209 Tension-type headache, unspecified, not intractable (principal); M47.22 Other spondylosis with radiculopathy, cervical region; G58.8 Other specified mononeuropathies; M54.2 Cervicalgia; Z79.899 Other long term (current) drug therapy; Z79.891 Long term (current) use of opiate analgesic

== ENCOUNTER → 2021-01-31 | Outpatient (CLI) | payer OTHER, MEDICARE ==
[~2021-01-31] VITALS: Ht 177.8 cm; Wt 92.0 kg
--- NOTE | ~2021-01-31 | HPC ---
[facility] [address] [place] [address] PAIN MANAGEMENT CONSULTATION Name: ELINA SOSA BRODIE Room #: REG [facility] Rene#: [id number] Admission: 01/31/21 Attend Phys: Karyn Hamlin Discharge: Date of : 33 Report #: [id number] THIS REPORT FOR: cc: Karolina Velazquez, Karolina Guillermo,Karyn THOMPSON ~ cc: Karolina Velazquez, Catracho Fry DO DATE OF SERVICE: 01/31/2021 CHIEF COMPLAINT: Tension headache. HISTORY OF PRESENT ILLNESS: As you know, this is a pleasant 85-year-old gentleman who returns today for renewal of his baclofen. He takes his medications to help ease the tension of his occipital headache as well as utilizing his peripheral nerve stimulator. The patient reports that he recently had it adjusted through [facility] [employer]. He was given numerous therapies to utilize over the next few months while he is in [place] for the winter. Today, he reports a pain score 5-7 depending on activity and stress levels. He does report that evening time is the worst painful time for him that is when he utilizes his baclofen and feels it is beneficial in helping alleviate some of the tension as well as resting and utilizing heat. As I stated, he is getting ready to go to [place] for the next 6 months and he is requesting renewal of his baclofen that he takes two to three times a day depending on his pain. He would like to fill that medication locally and then has been transferred for his next refill and then return in 6 months to see us. The patient reports no significant tension is at his occipital area and then across the back of his head as well, but it does not radiate into the front portion of his head today. ALLERGIES: No known drug allergies. CURRENT LIST OF MEDICATIONS: Baclofen, CBD oil, Prolia, levothyroxine, alprazolam, lactobacillus, Juice Plus, ___, zinc, vitamin D3, omega, SAMe, multivitamin, Nexium, Avodart, Uroxatral and aspirin. PQRS: 1. He has osteoarthritic issues in his spine as well as his fingers. He denies any rheumatoid arthritis. Height is 5 feet 10 inches, weight is 202. BMI is 29. 2. Vital signs: BP 129/61, pulse is 88, respirations 16, oxygen sat is 97%. 3. Pain score is 5-7. 4. Fall risk, denies dizziness. He does feel off balance at times. He has not fallen in the last 3 months. 5. He is not on any blood thinners or does not take any medications for hypertension. 6. He is not on any opioids. 7. His risk assessment is moderate. [address] [address] PAIN MANAGEMENT CONSULTATION Name: ELINA SOSA III Room #: REG CL Rene#: [id number] Admission: 01/31/21 Attend Phys: Karyn Hamlin Discharge: Date of : 31 Report #: [id number] 8. Functional assessment is 39/70. 9. Recreational drug use, he denies. He is not a smoker and does not drink alcohol. PHYSICAL EXAMINATION: GENERAL: This is a well-developed, well-nourished, well-hydrated, alert, and orientated 85-year-old gentleman who appears younger than his stated age, rating his pain score today at 5-7 depending on activity. HEENT: Normocephalic, atraumatic. Pupils equal, round and reactive. He is wearing a mask for COVID precautions. Extremities: No clubbing, no cyanosis, no edema. MUSCULOSKELETAL: He has multiple tender points around his occipital area and over his paraspinal musculature of the cervical spine and trapezius area as well as pressure in his head. He does have peripheral spinal cord stimulator in place to help alleviate some of his discomfort. He has found the baclofen is working fairly well in reducing some tension that he experiences for his cervicogenic headaches. We will continue with baclofen 10 mg, allowing him to take up to 3 times a day, #270 with 1 additional refill will be sent electronically to his pharmacy, so he may have this medication when he is gone for the next 6 months in [place]. I encouraged the patient to utilize his peripheral stimulator utilizing the various programs they have recently offered him to see if that enables better pain control for him. The patient is looking forward to having the options. So, multiple options that he did not have available to him with the stimulator. The patient is informed that he may come back in 6 months to see us or he may see his primary care doctor and have her renew the baclofen when he returns from [place]. Time spent with the patient in consultation, reviewing recent studies and clinical notes, physician reports, physical examination and correlation of findings, medical documentation to determine possible treatment options 11 minutes. Time spent with the patient, preparing for appointment, reviewing previous records and current medications, 5 minutes. Time spent preparing and sending electronic prescriptions with collaborating physician, Dr. Catracho Fry, documentation of visit, 5 minutes. Total time spent 21 minutes. By: [id number] Karyn Hamlin /jessica
[2021-01-31 11:16] VITALS: BP 129/61
--- NOTE | 2021-01-31 11:29 | NUR ---
Pain Clinic Assessment: 1. History of Osteoarthritis: fingers spine History of Rheumatoid Arthritis: Not Applicable 2. Height: 5 ft. 10 in. 177.8 cm. Weight: 202.8 lb. oz. 91.990 kg. Patient's BMI: 29.1 3. Vital Signs: BP: 129/61 Pulse: 88 Resp: 16 Temp: 02 Sat: 97 ECG Mon: 4. Pain Intensity: 5-7 5. Fall Risk: Dizziness: N Needs help standing or walking: N Fallen in the last 3 months: N Fall risk comments: 6. Patient on Blood Thinner: None 7. History of Hypertension: N 8. Opioid Therapy greater than 6 weeks: N Opiate Contract Signed: 9. Risk Assessment Tool Provided: 6-mod 10. Functional Assessment Tool: 39 11. Recreational Drug Use: Never Drug Type: Tobacco Use: Former Smoker Tobacco Type: Amount or Packs/day: How Many Years: Alcohol Use: No Frequency: Quant:
== END ==
LOC: PAIN 07:05
PROVIDERS: ATTEND Clinical Nurse Specialist Adult Health
DX: R51.9 Headache, unspecified (principal); Z79.899 Other long term (current) drug therapy